=== PATIENT | male | born 1960 | race Caucasian/White ===

== ENCOUNTER 2021-10-22 20:15 | Emergency (ER) | payer OTHER ==
[~2021-10-22] VITALS: Ht 172.7 cm; Wt 99.8 kg
[~2021-10-22 20:15] MED LIST: AMOXICILLIN875 MG PO; BUPROPION XL150 MG PO; FLOMAX0.4 MG PO; OMEPRAZOLE20 M1 PO; VENLAFAXINE HCL75 MG PO; ZOLPIDEM TARTRA10 MG PO
--- OUTSIDE RECORDS SUMMARY | 2021-10-22 20:18 | XMS ---
PreManage Notification: PAULO BHARDWAJ Security [employer] Events No recent Security Events currently on file CRITERIA MET - [facility] CARE PROVIDERS There are no care providers on record at this time. Shannan has no Care Guidelines for this patient. Kwame VISIT COUNT (12 MO.) 1 TY Perla TOTAL 1 NOTE: Visits indicate total known visits. ED/C VISIT TRACKING (12 MO.) 10/22/2021 20:16 [facility] [place] TYPE: Emergency COMPLAINT: - LIGHTHEADED,WEAKNESS INPATIENT VISIT TRACKING (12 MO.) No inpatient visits to display in this time frame [email or web address]
[2021-10-22] MEDS ORDERED: VIAGRA25 MG PO (20:33)
--- NOTE | 2021-10-23 06:34 | EKG ---
[facility] [address] [place], [place] [address] Signed Normal sinus rhythm Normal ECG No previous ECGs available Confirmed by LIDIA KELLY MD ([id number]) on 10/23/2021 6:33:47 AM Electronically Signed By: LIDIA KELLY MD 10/23/21 0634 PATIENT NAME: PAULO BHARDWAJ CAMILA Electrocardiogram DATE OF : 62 PHYSICIAN: LIDIA KELLY MD REPORT #: [id number] REPORT IS CONFIDENTIAL AND NOT TO BE RELEASED WITHOUT AUTHORIZATION
== END 2021-10-22 22:39 | disposition home or self-care (01) ==
LOC: ED 20:15
DX: R42 Dizziness and giddiness (principal); K21.9 Gastro-esophageal reflux disease without esophagitis; Z79.899 Other long term (current) drug therapy
CPT/HCPCS: 36415; 80053; 81001; 83735; 84484; 85025; 93005; 93010; 96360; 99284-25; J7040

== ENCOUNTER 2021-10-24 20:24 | Emergency (ER) | payer OTHER ==
[~2021-10-24] VITALS: Ht 172.7 cm; Wt 93.0 kg
--- NOTE | ~2021-10-24 | EKG ---
[facility] [address] [place], [place] [address] Draft EK completed, results pending confirmation PATIENT NAME: PAULO BHARDWAJ Electrocardiogram DATE OF : 62 PHYSICIAN: PRELIMINARY REPORT #: [id number] REPORT IS CONFIDENTIAL AND NOT TO BE RELEASED WITHOUT AUTHORIZATION
[~2021-10-24 20:24] MED LIST changes: +VIAGRA25 MG PO
--- OUTSIDE RECORDS SUMMARY | 2021-10-24 20:28 | XMS ---
PreManage Notification: PAULO BHARDWAJ Security [employer] Events No recent Security Events currently on file CRITERIA MET - [facility] - [facility] - 2 Visits in 30 Days CARE PROVIDERS There are no care providers on record at this time. Shannan has no Care Guidelines for this patient. Kwame V[facility] COUNT (12 MO.) [address] [facility] TOTAL 2 NOTE: Visits indicate total known visits. ED/[facility] VISIT TRACKING (12 MO.) [facility] COMPLAINT: - WEAKANESS,BLOOD PREASURE HIGH,TWINGE IN THE BACK O 10/22/2021 20:16 [facility] [place] TYPE: Emergency COMPLAINT: - LIGHTHEADED,WEAKNESS INPATIENT VISIT TRACKING (12 MO.) No inpatient visits to display in this time frame [email or web address]
[2021-10-24] MEDS ORDERED: ALPRAZOLAM0.5 MG PO (20:38)
[2021-10-24] MEDS ORDERED: TADALAFIL2.5 MG PO (20:38)
== END 2021-10-24 23:01 | disposition home or self-care (01) ==
LOC: ED 20:24
DX: B34.9 Viral infection, unspecified (principal); F32.A Depression, unspecified; K21.9 Gastro-esophageal reflux disease without esophagitis; N40.0 Benign prostatic hyperplasia without lower urinary tract symptoms; Z79.899 Other long term (current) drug therapy; Z20.822 Contact with and (suspected) exposure to COVID-19
CPT/HCPCS: 36415; 70450; 71045; 80053; 81001; 83735; 83880; 84484; 85025; 85379; 87502; 93005; 93010; C9803; U0003

== ENCOUNTER 2021-12-01 11:59 | Day surgery (SDC) | payer OTHER ==
[~2021-12-01] VITALS: Ht 167.6 cm; Wt 93.0 kg
[~2021-12-01 11:59] MED LIST changes: +ALPRAZOLAM0.5 MG PO; +PROMETHAZINE HC25 M1 PO; +TADALAFIL2.5 MG PO; +VENTOLIN HFA18 GM
--- NOTE | 2021-12-01 13:53 | NUR ---
PT ALERT, ORIENTED AND SUPPORTED BY HIS ADDY. PT HAS HAD SCOPES BEFORE, ADDY WILL RETURN FOR DC. GAVE ENCOURAGEMENT, PT REQUESTED PRAYER, WILL FOLLOW NEEDED
--- NOTE | 2021-12-01 14:59 | NUR ---
12/01/21 1459 Kely Domingo 1415 PT ARRIVED IN PACU AWAKE WITH NO C/O'S. ABD SOFT. 1430 SITTING UP IN BED TALKING WITH STAFF. 1440 GETTING DRESSED. 1450 DC INSTRUCTIONS GIVEN. ALL QUESTIONS ANSWERED. LEFT VIA W/C.
--- NOTE | 2021-12-02 11:25 | OR ---
[facility] [address] [place], [place] [address] Signed DATE OF OPERATION: 12/01/2021 SURGEON: Myra Hernandez MD PREOPERATIVE DIAGNOSES: 1. Family history of colon cancer (father age 75). 2. History of serrated adenoma in 2007. POSTOPERATIVE DIAGNOSIS: Normal colon to cecum. PROCEDURE: Total colonoscopy to cecum. ANESTHESIA: Intravenous sedation, fentanyl 200 mcg and versed 8 mg. INDICATIONS: This 61-year-old white man is a patient of Aviva Parks, and well known to me from the past. He underwent colonoscopy in 2007, at which time he was found to have a serrated adenoma. Repeat colonoscopy was performed in 2016, which was normal. He is here for surveillance colonoscopy. He does have family history of colon cancer in father at age 75. He understands the risks of bleeding, infection, and perforation related to colonoscopy and wished to proceed. FINDINGS: The prep was good. Complete colonoscopy was undertaken to the cecum. Full intubation of the cecum was not forthcoming, though the cecum was well visualized overall. The biopsy forceps was used to elevate the mucosa behind the ileocecal valve, showing no sign of abnormality. The remaining colon was normal including retroflexed view of the rectum. DESCRIPTION OF PROCEDURE: The patient was brought to the surgical endoscopy suite, placed in lateral decubitus position given intravenous sedation to the point of slurred speech and nystagmus. Digital rectal examination was normal. An Olympus video colonoscope was passed into the rectum and manipulated throughout the colon, ultimately intubating the right colon with abdominal wall stabilization. The scope was passed further up to with visualization of the ileocecal valve and portions of Electronically Signed By: MYRA HERNANDEZ MD 12/03/21 1243 PATIENT NAME: PAULO BHARDWAJ OPERATIVE REPORT DATE OF : 62 REPORT #: [id number] PHYSICIAN: MYRA HERNANDEZ MD PCP: AVIVA PARKS REPORT IS CONFIDENTIAL AND NOT TO BE RELEASED WITHOUT AUTHORIZATION [facility] [address] [place], [place] [address] Signed the cecum. Despite every effort, the scope could not fully intubate the cecum proper, though it could be visualized. The biopsy forceps was used to elevate the mucosa behind the ileocecal valve to visualize it and it too was normal. The scope was then withdrawn and examination throughout showed no sign of polyps, diverticular formation, colitis, or cancer. Retroflexed view of the rectum was normal. The scope was removed and the patient was taken to the recovery room in good condition. CONCLUDING DIAGNOSIS: Normal colon to cecum. PLAN: Recommend repeat colonoscopy in 5 years based on family history in first-degree relative (father). A colonoscopy can be performed sooner at any time until the need arise. He will return to the ongoing care of AMBROSE Low. MD CHERYL Galo/EULALIA /[id number] cc: AMBROSE Low Copies: AVIVA PARKS ~ Electronically Signed By: MYRA HERNANDEZ MD 12/03/21 1243 PATIENT NAME: PAULO BHARDWAJ OPERATIVE REPORT DATE OF : 62 REPORT #: [id number] PHYSICIAN: MYRA HERNANDEZ MD PCP: AVIVA PARKS REPORT IS CONFIDENTIAL AND NOT TO BE RELEASED WITHOUT AUTHORIZATION
== END 2021-12-01 14:50 | disposition home or self-care (01) ==
LOC: OPS 11:59 → DS 11:59 → OPS 13:00 → DS 13:00 → OPS 14:50
PROVIDERS: ATTEND Surgery
PROC: 0DJD8ZZ Inspection of Lower Intestinal Tract, Via Natural or Artificial Opening Endoscopic (ICD-10-PCS; principal; 2021-12-01 13:00)
DX: Z12.11 Encounter for screening for malignant neoplasm of colon (principal); Z80.0 Family history of malignant neoplasm of digestive organs; Z86.010 Personal history of colon polyps; K21.9 Gastro-esophageal reflux disease without esophagitis
CPT/HCPCS: 99153; G0500; J2250; J7121